=== PATIENT | female | born 1980 | race Caucasian/White ===

== ENCOUNTER → 2019-08-12 08:48 | Outpatient (BNVA) | payer BC, SELFPAY | PROVIDERS: PCP Nurse Practitioner Family; Visit Provider Obstetrics & Gynecology Female Pelvic Medicine and Reconstructive Surgery | DX: N92.6 Irregular menstruation, unspecified (principal); N93.0 Postcoital and contact bleeding | CPT/HCPCS: 84443 ==

== ENCOUNTER → 2019-08-27 11:03 | Outpatient (BNVA) | payer BC, SELFPAY | PROVIDERS: PCP Nurse Practitioner Family; Visit Provider Obstetrics & Gynecology Female Pelvic Medicine and Reconstructive Surgery | DX: N93.9 Abnormal uterine and vaginal bleeding, unspecified (principal) | CPT/HCPCS: 88305 ==

== ENCOUNTER 2020-11-08 10:47 | Emergency (ER) | payer MEDICAID, SELFPAY ==
[2020-11-08 10:52] VITALS: BP 123/94; PULSE 97; RESP 18; TEMP 37.1; O2SAT 97
--- NOTE | 2020-11-08 11:06 | ED_ITS ---
HPI - Nausea/Vomiting/Diarrhea General: Chief complaint: Nausea/Vomiting/Diarrhea Stated complaint: VOMITING, POSS DEHYDRATED, WANTS DRUG SCREENING Time Seen by Provider: 11/08/20 10:56 Source: patient Mode of arrival: ambulatory Limitations: no limitations History of Present Illness: HPI Narrative: Patient comes in with nausea and vomiting that started about 3:00 this morning. Since about 6 patient has noticed mainly bilious type vomiting. Patient reports that last night she did go out for girls night and drink quite a bit of alcohol. Patient started getting sick then this early this morning which is progressed to the point that she is unable to hold anything down and continues to have retching episodes. Patient reports cholecystectomy, and tubal ligation. Patient denies any chronic medical problems. MD elicited complaint: nausea and vomiting Onset (ago): hour(s) Description of vomiting: bilious Associated nausea: Yes Associated abdominal pain: Yes Location of pain: Epigastric Pain consistency: colicky Severity: mild Quality: aching Exacerbating factors: none Relieving factors: none Associated symtoms: Reports nausea Treatment prior to arrival: none Review of Systems General: Reports: 10 or more systems reviewed and unremarkable except in HPI and below GI: Reports: nausea and vomiting Physical Exam Const: COMMON NORMALS: no acute distress and patient oriented x3 GENERAL APPEARANCE: cooperative HENMT: COMMON NORMALS: normocephalic and Normal external nose present HEAD & SCALP: normal to inspection and normocephalic NOSE: Normal external nose present MOUTH: Normal oral and palatal mucosa present Eye: GENERAL EYE: appearance normal, both eyes and all related structures Neck/C-Spine: COMMON NORMALS: full ROM Chest: COMMONS NORMALS: normal inspection of the chest Resp: COMMON NORMALS: normal respiratory effort EFFORT & INSPECTION: Yes able to speak in complete sentences Cardio: COMMON NORMALS: regular rate and regular rhythm RATE: regular rate RHYTHM: regular rhythm GI: PALPATION: Yes Tenderness to palpation present (GI) (epigastric) : COMMON NORMALS: Yes no CVA tenderness BLADDER/KIDNEY EXAM: Yes no CVA tenderness Back/Pelvis: COMMON NORMALS: no CVA tenderness and thoracic and lumbar spine normal to inspection Extremity: COMMON NORMALS: normal to inspection Neuro: COMMON NORMALS: patient oriented x3 and moves all extremities Psych: COMMON NORMALS: mental status grossly normal and cooperative Skin: COMMON NORMALS: no rashes or lesions noted GENERAL SKIN EXAM: no rashes or lesions noted Course ED course: 1215, patient is much improved after first liter of IV fluids. Lab oratory values were unremarkable. Reviewed exam with patient with recommendations for further treatment and follow-up. Patient reported understanding agreed to plan. Vital Signs: Vital signs: Vital Signs Temperature 98.7 F 11/08/20 10:52 Pulse Rate 107 H 11/08/20 11:51 Respiratory Rate 15 11/08/20 11:51 Blood Pressure 107/80 11/08/20 11:51 Pulse Oximetry 100 11/08/20 11:51 MDM - Nausea/Vomiting/Diarrhea MDM Narrative: Medical decision making narrative: Patient came in today for persistent nausea and vomiting after large amount of alcohol ingestion last night. On exam oral mucosa was dry, abdomen is soft with nontender palpation. Vital signs were normal. Differential diagnosis includes gastritis secondary to alcohol, pancreatitis, dehydration. Laboratory values were unremarkable. Patient had significant improvement after 1 L of IV fluids and medication for nausea and vomiting. Patient was given Haldol 2-1/2 mg and Benadryl 25 mg with significant control of retching and nausea and vomiting. Patient was totally infused with 2 L of IV fluids. We will continue with Zofran and clear liquid diet for the next day. Patient reported understanding of care plan and need for follow-up or return to the ER. Lab Data: Labs: Lab Results 11/08/20 11/08/20 11/08/20 Range/Units 11:05 11:05 11:14 WBC 12.6 H (4.0-10.0) 10^3/ uL RBC 4.92 (4.1-5.3) 10^6/u L Hgb 14.8 (11.5-15.3) g/dL Hct 45.2 (37.0-47.0) % MCV 91.9 (81-99) fL MCH 30.1 (28.0-34.0) pg MCHC 32.7 (30.0-36.0) g/dL RDW 12.8 (12.1-15.1) % Plt Count 269 (130-400) 10^3/c mm MPV 8.8 (7.4-10.4) fL Neut % (Auto) 82.2 % Lymph % (Auto) 11.0 % [place] % (Auto) 5.4 % Eos % (Auto) 0.5 % Baso % (Auto) 0.4 % Neut # (Auto) 10.40 H (1.8-7.7) 10^3/u L Lymph # (Auto) 1.4 (0.8-4.8) 10^3/u L [place] # (Auto) 0.7 (0.2-0.9) 10^3/u L Eos # (Auto) 0.1 (0.0-0.8) 10^3/u L Baso # (Auto) 0.1 (0.0-0.1) 10^3/u L Nucleated RBC % (a uto) 0 % Nucleated RBCs # 0.0 /100WBC Sodium 141 (136-145) mmol/L Potassium 4.1 (3.5-5.1) mmol/L Chloride 104 (98-107) mmol/L Carbon Dioxide 25 (22-29) mmol/L Anion Gap 16.1 (5-19) BUN 11 (6-20) mg/dL Creatinine 0.7 (0.5-0.9) mg/dL GFR Calculation 91.8 (90-130) mL/min Glucose 119 H (65-115) mg/dL Calculated Osmolal ity 293 (285-295) mOsm/k g Calcium 8.7 (8.5-10.5) mg/dL Total Bilirubin 0.2 (0.15-1.2) mg/dL AST 29 (0-32) U/L ALT 34 H (0-33) U/L Alkaline Phosphata se 54 (35-105) IU/L Total Protein 6.7 (6.6-8.7) g/dL Albumin 4.1 (3.5-5.2) g/dL Globulin 2.6 (1.3-4.6) g/dL Urine Color Straw (Yellow) Urine Appearance Clear (CLEAR) Urine pH 9 H (5-7) Ur Specific Gravit y 1.015 (1.005-1.030) Urine Protein Neg (Negative) Urine Glucose (UA) Norm (Normal) Urine Ketones Negative (Negative) Urine Blood Neg (Negative) Urine Nitrate Negative (Negative) Urine Bilirubin Neg (Negative) Prot Sulfosalicyli c Acd Negative (Negative) Urine Urobilinogen Norm (Negative) mg/dL Ur Leukocyte Ana ase Negative (Negative) Urine Opiates Scre en (Negative) ng/mL Ur Barbiturates Sc reen (Negative) ng/mL Ur Phencyclidine S crn (Negative) ng/mL Ur Amphetamines Sc reen (Negative) ng/mL U Benzodiazepines Scrn (Negative) ng/mL Urine Cocaine Scre en (Negative) ng/mL U Marijuana (THC) Screen (Negative) ng/mL 11/08/20 Range/Units 11:14 WBC (4.0-10.0) 10^3/ uL RBC (4.1-5.3) 10^6/u L Hgb (11.5-15.3) g/dL Hct (37.0-47.0) % MCV (81-99) fL MCH (28.0-34.0) pg MCHC (30.0-36.0) g/dL RDW (12.1-15.1) % Plt Count (130-400) 10^3/c mm MPV (7.4-10.4) fL Neut % (Auto) % Lymph % (Auto) % [place] % (Auto) % Eos % (Auto) % Baso % (Auto) % Neut # (Auto) (1.8-7.7) 10^3/u L Lymph # (Auto) (0.8-4.8) 10^3/u L [place] # (Auto) (0.2-0.9) 10^3/u L Eos # (Auto) (0.0-0.8) 10^3/u L Baso # (Auto) (0.0-0.1) 10^3/u L Nucleated RBC % (a uto) % Nucleated RBCs # /100WBC Sodium (136-145) mmol/L Potassium (3.5-5.1) mmol/L Chloride (98-107) mmol/L Carbon Dioxide (22-29) mmol/L Anion Gap (5-19) BUN (6-20) mg/dL Creatinine (0.5-0.9) mg/dL GFR Calculation (90-130) mL/min Glucose (65-115) mg/dL Calculated Osmolal ity (285-295) mOsm/k g Calcium (8.5-10.5) mg/dL Total Bilirubin (0.15-1.2) mg/dL AST (0-32) U/L ALT (0-33) U/L Alkaline Phosphata se (35-105) IU/L Total Protein (6.6-8.7) g/dL Albumin (3.5-5.2) g/dL Globulin (1.3-4.6) g/dL Urine Color (Yellow) Urine Appearance (CLEAR) Urine pH (5-7) Ur Specific Gravit y (1.005-1.030) Urine Protein (Negative) Urine Glucose (UA) (Normal) Urine Ketones (Negative) Urine Blood (Negative) Urine Nitrate (Negative) Urine Bilirubin (Negative) Prot Sulfosalicyli c Acd (Negative) Urine Urobilinogen (Negative) mg/dL Ur Leukocyte Ana ase (Negative) Urine Opiates Scre en Negative (Negative) ng/mL Ur Barbiturates Sc reen Negative (Negative) ng/mL Ur Phencyclidine S crn Negative (Negative) ng/mL Ur Amphetamines Sc reen Negative (Negative) ng/mL U Benzodiazepines Scrn Negative (Negative) ng/mL Urine Cocaine Scre en Negative (Negative) ng/mL U Marijuana (THC) Screen Negative (Negative) ng/mL Discharge Plan Discharge Patient Disposition: Home Clinical Impression: Dehydration Nausea & vomiting Qualifiers: Vomiting type: bilious vomiting Qualified Code(s): R11.14 - Bilious vomiting Condition: Stable Prescriptions: New ondansetron 4 mg tablet,disintegrating 4 mg PO Q8H PRN (Reason: nausea and vomiting) 3 Days RF: 7 No Action multivitamin Tablet 1 tab PO DAILY RF: 0 ibuprofen 200 mg Tablet 400 - 600 mg PO PRN RF: 0 Discharge Orders: Discharge ED (Routine); Ordered 11/08/20 Ordered By: Giorgio Arnold Discharge Diet: Usual diet Discharge Activity: Increase activity as tolerated Patient Instructions: Acute Nausea and Vomiting (ED), Opioid Safety Activity Restrictions/Additional Instructions: You were mildly dehydrated on your laboratory values today. This is most likely due to nausea and vomiting because of gastritis that may be secondary to your alcohol ingestion. I would recommend that you continue with a liquid diet for the next 12 hours and then increase diet slowly over the next 2 days to a bland diet as tolerated. Use ondansetron as needed for nausea. Monitor self for fever or blood in vomit or stool. If you have any of the symptoms you should be reevaluated. Follow-up with primary care as needed. Return to the ER for worsening symptoms. Coding Level of Care Code ED Child Nurse for Chg Fwd Exam Comprehensive
[2020-11-08] MEDS: sodium chloride 0.9% 1,000 ML 999 ML IV (11:12)
[2020-11-08 11:16] LABS: Basophils # 0.1 10^3/uL (0.0-0.1); Basophils % 0.4 %; Eosinophils # 0.1 10^3/uL (0.0-0.8); Eosinophils % 0.5 %; Hematocrit 45.2 % (37.0-47.0); Hemoglobin 14.8 g/dL (11.5-15.3); Lymphocytes # 1.4 10^3/uL (0.8-4.8); Mean Corpuscular HGB Conc 32.7 g/dL (30.0-36.0); Mean Corpuscular Hemoglobin 30.1 pg (28.0-34.0); Mean Corpuscular Volume 91.9 fL (81-99); Mean Platelet Volume 8.8 fL (7.4-10.4); Monocytes # 0.7 10^3/uL (0.2-0.9); Monocytes % 5.4 %; Neutrophils % 82.2 %; Nucleated Red Blood Cells % 0 %; Platelet Count 269 10^3/cmm (130-400); Red Blood Count 4.92 10^6/uL (4.1-5.3); Red Cell Distribution Width 12.8 % (12.1-15.1); White Blood Count 12.6 10^3/uL (4.0-10.0)
[2020-11-08 11:20] LABS: Add Urine Microscopic? NO; Charge for UA Resulting for Rev
[2020-11-08] MEDS: diphenhydrAMINE 50 mg/mL SDV 1mL 25 MG IVP (11:23)
[2020-11-08] MEDS: haloperidol inj 5 mg/mL INJ 1 mL 2.5 MG IVP (11:24)
[2020-11-08 11:27] VITALS: BP 123/75; PULSE 90; RESP 15; O2SAT 100
[2020-11-08 11:38] LABS: Amphetamines Screen Urine Negative (Negative); Barbiturates Screen Urine Negative (Negative); Benzodiazepines Screen Urine Negative (Negative); Bilirubin Urine Neg (Negative); Blood Urine Neg (Negative); Cocaine Screen Urine Negative (Negative); Glucose Urine UA Norm (Normal); Ketones Urine Negative (Negative); Leukocyte Esterase Urine Negative (Negative); Nitrate Urine Negative (Negative); Opiate Screen Urine Negative (Negative); PCP Screen Urine Negative (Negative); Protein Urine Neg (Negative); Specific Gravity, Urine 1.015 (1.005-1.030); Sulfosalicylic Acid Urine Negative (Negative); THC Screen Urine Negative (Negative); Urine Appearance Clear (CLEAR); Urine Color Straw (Yellow); Urobilinogen Urine Norm (Negative); pH Urine 9 (5-7)
[2020-11-08 11:51] VITALS: BP 107/80; PULSE 107; RESP 15; O2SAT 100
[2020-11-08 12:12] LABS: Alanine Aminotransferase 34 U/L (0-33); Albumin Level 4.1 g/dL (3.5-5.2); Alkaline Phosphatase 54 IU/L (35-105); Anion Gap 16.1 (5-19); Aspartate Amino Transferase 29 U/L (0-32); Blood Urea Nitrogen 11 mg/dL (6-20); Calcium 8.7 mg/dL (8.5-10.5); Carbon Dioxide 25 mmol/L (22-29); Chloride 104 mmol/L (98-107); Globulin 2.6 g/dL (1.3-4.6); Glomerular Filtration Rate 91.8 mL/min (90-130); Glucose 119 mg/dL (65-115); Osmolality Calculated 293 mOsm/kg (285-295); Potassium 4.1 mmol/L (3.5-5.1); Sodium 141 mmol/L (136-145); Total Bilirubin 0.2 mg/dL (0.15-1.2); Total Protein 6.7 g/dL (6.6-8.7)
[2020-11-08] MEDS: lactated ringers 1,000 ML 999 ML IV (12:20)
[2020-11-08 13:54] VITALS: BP 130/84; PULSE 119; RESP 19; O2SAT 98
== END 2020-11-08 13:55 | disposition home or self-care (01) ==
PROVIDERS: Emergency Provider Nurse Practitioner Family
DX: R11.14 Bilious vomiting (principal); E86.0 Dehydration
CPT/HCPCS: 80053; 80306; 81003; 85025; 96361; 96374; 96375; 99284; J1200; J1630; J7030

== ENCOUNTER 2021-08-12 08:51 | Emergency (ER) | payer MEDICAID, SELFPAY ==
[2021-08-12 09:13] VITALS: BP 99/71; PULSE 106; RESP 19; TEMP 36.8; O2SAT 97; BMI 29.2
--- NOTE | 2021-08-12 09:16 | XR_ITS ---
WS: [id number] PORTABLE CHEST HISTORY: cough, covid symptoms COMPARISON: 09/30/2015 Lungs are clear and well expanded. No pleural effusion or pneumothorax. Cardiac size: Normal. Mediastinum/Aorta: Normal mediastinum. No osseous abnormality seen. XR/XR chest 1V portable [id number] IMPRESSION: Unremarkable portable chest.
--- NOTE | 2021-08-12 09:23 | ED_ITS ---
HPI - COVID General: Chief Complaint: COVID symptoms Stated Complaint: Dehydrated, Vomiting alot, COVID + Time Seen by Provider: 08/12/21 09:17 Triage information: No fever, cough or shortness of breath . No known COVID + exposure last 14 days History of Present Illness: Patient is a 41-year-old female comes to the ED with Covid symptoms. Patient says the some of her family she lives with tested positive for COVID-19 recently. Patient's symptoms started 4 days ago. Her symptoms are cough, nasal congestion and drainage, nausea/vomiting, chills and body aches. She has had trouble keeping foods or fluids down. Denies any chest pain or shortness of breath. COVID 19 common symptoms: positive chills, productive cough, body aches, nasal congestion, nausea and vomiting; negative fever(s), dyspnea, fatigue, headache(s), throat pain or diarrhea COVID 19 other sytmptoms: negative chest pain COVID Results: SARS-CoV-2 RNA (RT-PCR) Pending 08/12/21 09:26 08/12/21 Review of Systems Const: Reports: chills and body aches; Denies: fever(s) or fatigue Eyes: Denies: change in vision or eye discomfort ENMT: Reports: nasal discharge and nasal congestion; Denies: throat pain or odynophagia Card: Denies: chest pain, palpitations, edema, swelling of feet/ankles, dyspnea on exertion or orthopnea Resp: Reports: productive cough and change in phlegm color (yellow); Denies: dyspnea GI: Reports: nausea and vomiting; Denies: abdominal pain, diarrhea, constipation or hematochezia : Denies: flank pain, dysuria or hematuria Musc: Denies: neck pain, back pain or extremity swelling Skin/Breast: Denies: rash or new lesions Neuro: Denies: headache(s), numbness in extremities or weakness in extremities PFSH ED PFSH: Medical History Staci-Danlos syndrome Surgical History History of facial surgery Plastic surgery with skin graft as a child for a traumatic injury History of tubal ligation (~2013) at time of Hx of dilation and curettage Previous section (~2009) Previous section (~2010) Previous section Status post cholecystectomy (~2013) Family History Mother Hypertension Hyperlipidemia Thyroid condition Heart disease Grandmother Hypertension maternal Hyperlipidemia Maternal and paternal Family/Other Stroke Maternal uncle Uterine cancer Maternal great aunt Denies family history of Colon cancer Ovarian cancer Diabetes Breast cancer Social History Smoking and tobacco status: never smoked Alcohol intake: current Alcohol intake frequency: holidays/special occasions only Physical Exam Const: COMMON NORMALS: no acute distress, patient oriented x3, healthy appearing and alert GENERAL APPEARANCE: cooperative and comfortable HENMT: COMMON NORMALS: normocephalic HEAD & SCALP: normocephalic MOUTH: Normal oral and palatal mucosa present THROAT: posterior oropharynx normal and uvula midline Neck/C-Spine: COMMON NORMALS: supple GENERAL: Yes normal visual inspection Resp: COMMON NORMALS: normal respiratory effort, No retractions, No use of accessory muscles and clear to auscultation bilaterally AUSCULTATION: clear to auscultation bilaterally Cardio: COMMON NORMALS: regular rate, regular rhythm, S1 normal heart sound present, S2 normal heart sound present, No gallops present (Cardio), No clicks present (Cardio), No murmurs present (Cardio) and Peripheral pulses 2+ throughout RATE: regular rate RHYTHM: regular rhythm HEART SOUNDS: S1 normal heart sound present and S2 normal heart sound present PERIPHERAL PULSES: Peripheral pulses 2+ throughout GI: COMMON NORMALS: Normal to inspection, nondistended, normoactive bowel sounds present, Soft to palpation, non-tender and no masses PALPATION: Yes Soft to palpation : COMMON NORMALS: Yes no CVA tenderness BLADDER/KIDNEY EXAM: Yes no CVA tenderness Back/Pelvis: COMMON NORMALS: no CVA tenderness Extremity: COMMON NORMALS: normal to inspection Neuro: COMMON NORMALS: patient oriented x3 and moves all extremities SENSORIUM/ORIENTATION: Yes alert Skin: GENERAL SKIN EXAM: dry skin Course Reevaluation(s): Reevaluation #1: Patient received IM Toradol and Zofran. After she received meds she was able to keep fluids down and had no episodes of emesis here in the ED. Time: 11:00 Vital Signs: Vital signs: Vital Signs Temperature 98.0 F 08/12/21 11:22 Pulse Rate 88 08/12/21 11:22 Respiratory Rate 18 08/12/21 11:22 Blood Pressure 90/65 08/12/21 11:22 Pulse Oximetry 97 08/12/21 11:22 [facility] - COVID Medical Decision Making Patient is a 41-year-old female comes to the ED with Covid symptoms. She has several people who live in her house with her that tested positive for COVID-19. She is having a lot of nausea and vomiting along with upper respiratory symp toms such as productive cough with yellow sputum. She had a positive home Covid test. Vitals are stable. Exam is benign. Influenza negative and COVID-19 is pending. Chest x-ray showed no acute findings. Patient was given some IM Zofran and Toradol her symptoms improved. She was able to keep fluids down. Patient diagnosed with COVID-19. Patient discharged home with a prescription for prednisone, Zofran, Tessalon Perles and a Z-Pop. She is to follow-up with her PCP in 5 to 7 days reevaluation. Return ED precautions given. Patient understood and agree with plan. Lab Data I reviewed the patient's lab results. Radiology Impressions Chest X-Ray 08/12/21 09:16 IMPRESSION: Unremarkable portable chest. Laboratory Results Influenza Type A Ag Negative (Negative) 08/12/21 09:26 Influenza Type B Ag Negative (Negative) 08/12/21 09:26 SARS-CoV-2 RNA (RT-PCR) Pending 08/12/21 09:26 08/12/21 Discharge Plan Discharge Patient Disposition: Home Clinical Impression: COVID-19 Condition: Stable Prescriptions: New Zofran 4 mg tablet 4 mg PO Q8H PRN (Reason: nausea and vomiting) Qty: 20 0RF Tessalon Perles 100 mg capsule 100 mg PO TID PRN (Reason: cough) Qty: 20 0RF prednisone 20 mg tablet 20 mg PO BID 5 Days Qty: 10 0RF azithromycin 250 mg tablet See Rx Instructions .ROUTE .COMPLEX Qty: 6 0RF Rx Instructions: take 500 mg today (day 1), then 250 mg for 4 days (days 2-5) No Action norgestimate-ethinyl estradiol [Tri-Sprintec (28)] 0.18/0.215/0.25 mg-35 mcg (28) tablet 1 tab PO DAILY 0RF multivitamin with iron Tablet 1 tab PO DAILY 0RF azithromycin [Zithromax] 1 gram packet 1 gm PO DAILY 0RF Rx Instructions: for 5 days loratadine [Claritin] 10 mg tablet 10 mg PO DAILY 0RF Discharge Orders: Discharge ED (Routine); Ordered 08/12/21 Ordered By: Sukhjinder Ledesma Referrals: Demetrio Ross FNP [Primary Care Provider] - Discharge Diet: Regular Discharge Activity: Increase activity as tolerated Patient Instructions: COVID-19 (Coronavirus Disease 2019) (ED) Activity Restrictions/Additional Instructions: Follow-up with medical provider as directed in 5 to 7 days for reevaluation. Your COVID-19 test is pending and should be back in the next 24 to 48 hours. You can contact [facility] tomorrow to find out COVID-19 test results. Take medications as prescribed. Return to the ER or your medical provider if condition worsens. Please read and understand discharge instructions. Thank you for choosing [facility] for your healthcare needs today. Please realize this is an emergency room and that we are providing you with a medical screening exam and this may not be complete and all inclusive of all the testing and or work up that you may need to determine your ailment or severity of your illness. It is very important that you follow up as instructed or that you return to the Emergency Department should you have concerns or if your condition changes or worsens in any way. Coding Level of Care Code ED Rate Examiner for Malcolm Campos Exam Comprehensive
[2021-08-12 10:28] VITALS: O2SAT 97
[2021-08-12] MEDS: ondansetron 2 mg/ML SDV 2 mL 4 MG IM (10:28)
[2021-08-12] MEDS: ketorolac 60 mg/2 mL INJ IM (10:28)
[2021-08-12 11:08] LABS: Influenza A by IFA Negative (Negative); Influenza B by IFA Negative (Negative)
[2021-08-12 11:22] VITALS: BP 90/65; PULSE 88; RESP 18; TEMP 36.7; O2SAT 97
[2021-08-13 18:08] LABS: Quest SARS-CoV-2 RNA DETECTED (NOT DETECTED)
--- NOTE | 2021-08-14 15:44 | PC.NURSE ---
pt notfied of postive covid results
== END 2021-08-12 11:25 | disposition home or self-care (01) ==
PROVIDERS: Emergency Provider Physician Assistant; PCP Nurse Practitioner Family
DX: U07.1 COVID-19 (principal)
CPT/HCPCS: 71045; 87635; 87804; 96372; 99283; J1885; J2405

== ENCOUNTER 2022-03-27 11:13 | Emergency (ER) | payer BC, MEDICAID, SELFPAY ==
[2022-03-27 11:14] VITALS: BP 140/85; PULSE 86; RESP 16; TEMP 36.3; O2SAT 97; BMI 31.1
--- NOTE | 2022-03-27 11:17 | W.ED.ABDPA2 ---
HPI - Abdominal Pain General: Chief Complaint: Nausea/Vomiting/Diarrhea Stated Complaint: N/V Abd pain Time Seen by Provider: 03/27/22 11:16 History of Present Illness: Ms. Singleton is a 42-year-old lady who presents to the emergency department due to nausea, vomiting, abdominal pain. She reports positive COVID diagnosis approximately 9 days ago but had been improving. Yesterday she ate a chicken sandwich in the afternoon and did not have dinner. She went and had some drinks including multiple shots and a beer. Around midnight she woke up and had abdominal pain with numerous episodes of nonbilious and nonbloody emesis associated with the pain. She feels generally unwell with chills related to vomiting. Pain is mostly epigastric in nature and burning with burning sensation radiating up to the throat. Intensity of symptoms is moderate to severe. Attempted Zofran at home however vomited it up. No other specific changes in health, exacerbating, or alleviating factors identified. Onset (ago): hour(s) Pain Consistency: constant Location: Epigastric Associated Symptoms: Reports diarrhea, nausea and vomiting; Denies hematemesis Review of Systems General: Reports: 10 or more systems reviewed and unremarkable except in HPI and below GI: Reports: nausea, vomiting and diarrhea; Denies: hematemesis PFSH ED PFSH: Medical History Bursitis and tendinitis of shoulder region Staci-Danlos syndrome Surgical History History of facial surgery Plastic surgery with skin graft as a child for a traumatic injury History of tubal ligation (~2013) at time of Hx of dilation and curettage Previous section (~2009) Previous section (~2010) Previous section Status post cholecystectomy (~2013) Family History Mother Hypertension Hyperlipidemia Thyroid condition Heart disease Grandmother Hypertension maternal Hyperlipidemia Maternal and paternal Family/Other Stroke Maternal uncle Uterine cancer Maternal great aunt Denies family history of Colon cancer Ovarian cancer Diabetes Breast cancer Social History Smoking and tobacco status: never smoked Alcohol intake: current Alcohol intake frequency: holidays/special occasions only Physical Exam Const: COMMON NORMALS: alert GENERAL APPEARANCE: cooperative and well developed HENMT: COMMON NORMALS: normocephalic and atraumatic HEAD & SCALP: normocephalic and atraumatic Eye: COMMON NORMALS: conjunctivae normal CONJUNCTIVA: Yes conjunctivae normal SCLERA: sclerae normal Neck/C-Spine: COMMON NORMALS: supple GENERAL: Yes trachea midline Resp: COMMON NORMALS: clear to auscultation bilaterally EFFORT & INSPECTION: Yes able to speak in complete sentences AUSCULTATION: clear to auscultation bilaterally Cardio: COMMON NORMALS: regular rate and regular rhythm RATE: regular rate RHYTHM: regular rhythm GI: COMMON NORMALS: Soft to palpation PALPATION: Yes Soft to palpation, Yes Tenderness to palpation present (GI) (Epigastric), No Guarding due to palpation present (GI) and No Rigid due to palpation PERCUSSION: normal to percussion Extremity: GENERAL: Yes normal exam except as noted and No edema Neuro: COMMON NORMALS: moves all extremities SENSORIUM/ORIENTATION: Yes alert and No Orientation impaired Psych: COMMON NORMALS: mental status grossly normal and Normal thought process present THOUGHT PROCESS: Normal thought process present Course Vital Signs: Vital signs: Vital Signs Temperature 97.4 F L 03/27/22 11:21 Pulse Rate 78 03/27/22 13:22 Respiratory Rate 16 03/27/22 13:22 Blood Pressure 140/85 03/27/22 11:21 Pulse Oximetry 98 03/27/22 13:22 Oxygen Delivery Me thod 03/27/22 11:21 MDM - Abdominal Pain Medical Decision Making 42-year-old lady with recent history of COVID presenting with abdominal symptoms. Exam as above. No evidence of peritonitis or acute surgical abdomen. Mild leukocytosis on blood work without other significant abnormality. Discussed risks and benefits of imaging which the patient wishes to forego at this time given low clinical probability for significant finding. She is improved with symptom treatment/medications. Satisfactory for outpatient management with strict return precautions given. Medical Records I reviewed the patient's medical records. Lab Data I reviewed the patient's lab results. : 03/27/22 11:45 03/27/22 11:45 Labs/Radiology: Laboratory Results WBC 11.9 10^3/uL (4.0-10.0) H 03/27/22 11:45 RBC 4.59 10^6/uL (4.1-5.3) 03/27/22 11:45 Hgb 14.0 g/dL (11.5-15.3) 03/27/22 11:45 Hct 41.8 % (37.0-47.0) 03/27/22 11:45 MCV 91.1 fl (81-99) 03/27/22 11:45 MCH 30.5 pg (28.0-34.0) 03/27/22 11:45 MCHC 33.5 g/dL (30.0-36.0) 03/27/22 11:45 RDW 12.4 % (12.1-15.1) 03/27/22 11:45 Plt Count 262 10^3/cmm (130-400) 03/27/22 11:45 MPV 9.0 fL (7.4-10.4) 03/27/22 11:45 Neut % (Auto) 89.1 % 03/27/22 11:45 Lymph % (Auto) 7.0 % 03/27/22 11:45 [place] % (Auto) 2.9 % 03/27/22 11:45 Eos % (Auto) 0.1 % 03/27/22 11:45 Baso % (Auto) 0.3 % 03/27/22 11:45 Neut # (Auto) 10.63 10^3/uL (1.8-7.7) H 03/27/22 11:45 Lymph # (Auto) 0.8 10^3/uL (0.8-4.8) 03/27/22 11:45 [place] # (Auto) 0.3 10^3/uL (0.2-0.9) 03/27/22 11:45 Eos # (Auto) 0.0 10^3/uL (0.0-0.8) 03/27/22 11:45 Baso # (Auto) 0.0 10^3/uL (0.0-0.1) 03/27/22 11:45 Nucleated RBC % (auto) 0 % 03/27/22 11:45 Nucleated RBCs # 0.0 /100WBC 03/27/22 11:45 Sodium 140 mmol/L (136-145) 03/27/22 11:45 Potassium 4.1 mmol/L (3.5-5.1) 03/27/22 11:45 Chloride 106 mmol/L (98-107) 03/27/22 11:45 Carbon Dioxide 24 mmol/L (22-29) 03/27/22 11:45 Anion Gap 14.1 (5-19) 03/27/22 11:45 BUN 9 mg/dL (6-20) 03/27/22 11:45 Creatinine 0.6 mg/dL (0.5-0.9) 03/27/22 11:45 GFR Calculation 108.6 mL/min (90-130) 03/27/22 11:45 Glucose 121 mg/dL (65-115) H 03/27/22 11:45 Calculated Osmolality 290 mOsm/kg (285-295) 03/27/22 11:45 Calcium 9.0 mg/dL (8.5-10.5) 03/27/22 11:45 Lipase 30 U/L (13-60) 03/27/22 11:45 Discharge Plan Discharge Patient Disposition: Home Clinical Impression: Nausea & vomiting, Epigastric abdominal pain Condition: Stable Prescriptions: New ondansetron 4 mg tablet,disintegrating 4 mg PO Q8H PRN (Reason: nausea and vomiting) Qty: 15 0RF Discharge Orders: Discharge ED (Routine); Ordered 03/27/22 Ordered By: Chico Leyva Referrals: Demetrio Ross FNP [Primary Care Provider] - Discharge Diet: Usual diet and Clear Liquid Discharge Activity: Increase activity as tolerated Activity Restrictions/Additional Instructions: Thank you for visiting the emergency department. You were seen and evaluated for nausea and vomiting with epigastric pain. The exact cause of your symptoms is unclear though does not appear to need further imaging or inpatient evaluation at this time. We are pleased that you had improvement with treatment. I will prescribe antinausea medication. Please stick to a clear liquid diet as discussed and then advance as tolerated. I would expect improvement in symptoms in the next few days. Please follow-up with a primary care provider. Return to the emergency department for worsening symptoms, inability to tolerate oral intake, or anything else that you are concerned about and feel needs emergency department evaluation. Coding Level of Care Code ED Heel Washer Stringing Machine Operator for Malcolm Fwd Exam Comprehensive
[2022-03-27 11:21] VITALS: BP 140/85; PULSE 86; RESP 16; TEMP 36.3; O2SAT 97
[2022-03-27] MEDS: ondansetron 2 mg/ML SDV 2 mL 4 MG IVP (11:48)
[2022-03-27] MEDS: ketorolac 30 mg/mL INJ 15 MG IVP (11:48)
[2022-03-27] MEDS: sodium chloride 0.9% 1,000 ML 999 ML IV (11:48)
[2022-03-27 11:58] LABS: Basophils % 0.3 %; Eosinophils % 0.1 %; Hematocrit 41.8 % (37.0-47.0); Lymphocytes # 0.8 10^3/uL (0.8-4.8); Mean Corpuscular HGB Conc 33.5 g/dL (30.0-36.0); Mean Corpuscular Hemoglobin 30.5 pg (28.0-34.0); Mean Corpuscular Volume 91.1 fl (81-99); Monocytes # 0.3 10^3/uL (0.2-0.9); Monocytes % 2.9 %; Neutrophils # 10.63 10^3/uL (1.8-7.7); Neutrophils % 89.1 %; Nucleated Red Blood Cells % 0 %; Platelet Count 262 10^3/cmm (130-400); Red Blood Count 4.59 10^6/uL (4.1-5.3); Red Cell Distribution Width 12.4 % (12.1-15.1); White Blood Count 11.9 10^3/uL (4.0-10.0)
[2022-03-27 12:18] LABS: Blood Urea Nitrogen 9 mg/dL (6-20); Carbon Dioxide 24 mmol/L (22-29); Chloride 106 mmol/L (98-107); Creatinine Clr Calc Pharmacy 115.0416; Glomerular Filtration Rate 108.6 mL/min (90-130); Glucose 121 mg/dL (65-115); Lipase 30 U/L (13-60); Osmolality Calculated 290 mOsm/kg (285-295); Sodium 140 mmol/L (136-145)
[2022-03-27 12:22] LABS: Anion Gap 14.1 (5-19); Potassium 4.1 mmol/L (3.5-5.1)
[2022-03-27 13:22] VITALS: PULSE 78; RESP 16; O2SAT 98
== END 2022-03-27 13:25 | disposition home or self-care (01) ==
PROVIDERS: Emergency Provider Emergency Medicine; PCP Nurse Practitioner Family
DX: R11.2 Nausea with vomiting, unspecified (principal); R10.13 Epigastric pain
CPT/HCPCS: 80048; 83690; 85025; 96361; 96374; 96375; 99284; J1885; J2405; J7030

== ENCOUNTER 2022-11-25 00:12 | Emergency (ER) | payer BC, MEDICAID, SELFPAY ==
--- NOTE | 2022-11-25 00:13 | XRR_ITS ---
PROCEDURE INFORMATION: Exam: XR Right Shoulder Exam date and time: 11/25/2022 12:23 AM Age: 42 years old Clinical indication: Injury or trauma; Fall; Blunt trauma (contusions or hematomas); Patient HX: Patient tripped at home and fell onto floor directly on right shoulder. C/O pain with reduced rom. TECHNIQUE: Imaging protocol: Radiologic exam of the right shoulder. Views: 2 or more views. COMPARISON: CR XR chest 1V portable [id number] 08/12/2021 9:24 AM FINDINGS: Bones/joints: No acute fracture or dislocation. Subtle calcific densities at the superior margin of the humeral head and likely represents calcific tendinopathy, correlate clinically. Soft tissues: Grossly unremarkable in appearance. XR/XR shoulder RT min 2V* [id number] IMPRESSION: 1. No acute fracture or dislocation. 2. Subtle calcific densities at the superior margin of the humeral head and likely represents calcific tendinopathy, correlate clinically.
[2022-11-25 00:17] VITALS: BP 127/88; PULSE 75; RESP 20; TEMP 36.6; O2SAT 98; BMI 32.9
--- NOTE | 2022-11-25 00:23 | ED_ITS ---
HPI - Extremity Problem General: Chief complaint: Extremity Injury, Upper Stated complaint: right shoulder injury Time Seen by Provider: 11/25/22 00:13 Source: patient Mode of arrival: ambulatory Limitations: no limitations History of Present Illness: 42-year-old female states that she tripped over her cat roughly 5 hours ago landed on a hardwood floor states she landed right on her right shoulder has been having right shoulder pain since then hurts to move it she rates her pain a 7 out of 10 currently denies headache or neck pain. Associated symptoms: Deny chest pain, fever(s) or rash Review of Systems Const: Denies: fever(s) ENMT: Denies: throat pain Card: Denies: chest pain Resp: Denies: dyspnea GI: Denies: abdominal pain Musc: Reports: extremity pain; Denies: neck pain or back pain Skin/Breast: Denies: rash Neuro: Denies: headache(s) PFS ED PFSH: Medical History Bursitis and tendinitis of shoulder region Staci-Danlos syndrome Surgical History History of facial surgery Plastic surgery with skin graft as a child for a traumatic injury History of tubal ligation (~2013) at time of Hx of dilation and curettage Previous section (~2009) Previous section (~2010) Previous section Status post cholecystectomy (~2013) Family History Mother Hypertension Hyperlipidemia Thyroid condition Heart disease Grandmother Hypertension maternal Hyperlipidemia Maternal and paternal Family/Other Stroke Maternal uncle Uterine cancer Maternal great aunt Denies family history of Colon cancer Ovarian cancer Diabetes Breast cancer Social History Smoking and tobacco status: never smoked Alcohol intake: current Alcohol intake frequency: holidays/special occasions only Substance/Drug Use: never Physical Exam Const: COMMON NORMALS: no acute distress and patient oriented x3 HENMT: COMMON NORMALS: normocephalic and atraumatic HEAD & SCALP: normocephalic and atraumatic Eye: COMMON NORMALS: conjunctivae normal CONJUNCTIVA: Yes conjunctivae normal Neck/C-Spine: COMMON NORMALS: full ROM CERVICAL SPINE: No cervical ROM normal, No pain with cervical ROM and No Cervical spine tenderness Resp: COMMON NORMALS: normal respiratory effort Cardio: COMMON NORMALS: regular rate RATE: regular rate GI: INSPECTION: Yes normal to inspection Extremity: NARRATIVE EXTREMITY EXAM: No obvious deformity right shoulder tenderness over right proximal humerus no clavicle tenderness distal pulses sensation intact Neuro: COMMON NORMALS: patient oriented x3 Psych: COMMON NORMALS: mental status grossly normal Skin: COMMON NORMALS: no rashes or lesions noted GENERAL SKIN EXAM: no rashes or lesions noted Course Vital Signs: Vital signs: Vital Signs Temperature 97.9 F 11/25/22 00:17 Pulse Rate 75 11/25/22 00:17 Respiratory Rate 20 H 11/25/22 00:17 Blood Pressure 127/88 11/25/22 00:17 Pulse Oximetry 98 11/25/22 00:17 MDM - Extremity (Nontraumatic) Medical Decision Making Patient presents with right shoulder injury from a fall she does have some pain with range of motion x-ray shows no acute fracture we will place her in a sling she is on to wear his sling at times at all time do some range of motion.. We will place her on Naprosyn and Robaxin she is to follow-up with orthopedics. Medical Records I reviewed the patient's medical records. Imaging Data xr r shoulder: I personally reviewed and interpreted this imaging study as follows: My impression: no acute abnormality Discharge Plan Discharge Patient Disposition: Home Clinical Impression: Sprain of right shoulder Condition: Stable Prescriptions: New methocarbamol 750 mg tablet 750 mg PO Q6H PRN (Reason: spasms) Qty: 20 0RF Naprosyn 500 mg tablet 500 mg PO BID PRN (Reason: pain) Qty: 20 0RF No Action ondansetron 4 mg tablet,disintegrating 4 mg PO Q8H PRN (Reason: nausea and vomiting) Qty: 15 0RF Discharge Orders: Discharge ED (Routine); Ordered 11/25/22 Ordered By: Corine Craig Referrals: Eugenia Coronado MD [Physician] - 1-3 days Demetrio Ross FNP [Primary Care Provider] - Discharge Diet: Advance as tolerated Discharge Activity: Resume usual activity Patient Instructions: Shoulder Sprain (ED) Coding Level of Care Code ED Traffic Control Specialist for g Beth
[2022-11-25] MEDS: HYDROcodone-acetaminophen 5-325 mg Tablet 1 TAB PO (00:32)
--- NOTE | 2022-11-25 10:11 | PC.NURSE ---
Addendum entered by Mine Kellogg 12/02/22 09:27: Patient had a follow up appointment scheduled with ortho - patient did attend appointment. Addendum entered by Mine Kellogg 12/01/22 12:48: Patient has a follow up appointment scheduled for , December 01, 2022 at 2:15 with Elliott Lopez at ortho. Original Note: Patient was seen in the ED and referred to ortho for shoulder injury. TCM sent message to call pt with an appt.
== END 2022-11-25 00:49 | disposition home or self-care (01) ==
PROVIDERS: Emergency Provider Emergency Medicine; PCP Nurse Practitioner Family
DX: S43.401A Unspecified sprain of right shoulder joint, initial encounter (principal); W01.0XXA Fall on same level from slipping, tripping and stumbling without subsequent striking against object, initial encounter
CPT/HCPCS: 73030; 99283

== ENCOUNTER 2023-05-05 15:28 | Outpatient (CLI) | payer BC, MEDICAID, SELFPAY ==
--- NOTE | 2023-05-05 15:33 | MM_ITS ---
WS: [id number] BILATERAL 3D TOMOSYNTHESIS DIGITAL SCREENING MAMMOGRAPHY WITH CAD CLINICAL INFORMATION: SCREENING HISTORY: Screening mammogram. No current complaints. COMPARISON: 2018 TECHNIQUE: Bilateral CC and MLO views. FINDINGS: The breasts are composed of heterogeneous fibroglandular density tissue, which can limit the detectio n of small underlying mass lesions. No suspicious mass, asymmetry, calcifications, or architectural d istortion. No evidence of malignancy. IMPRESSION: MM/[place] [id number] BI-RADS: 1-Negative FOLLOW UP: 1 Year Follow-up Recommend return to annual screening mammography.
== END 2023-05-05 15:29 | disposition home or self-care (01) ==
LOC: RAD 15:28
PROVIDERS: PCP Nurse Practitioner Family; Visit Provider Family Medicine
DX: Z12.31 Encounter for screening mammogram for malignant neoplasm of breast (principal)
CPT/HCPCS: 77063; 77067

== ENCOUNTER 2023-10-16 12:05 | Outpatient (CLI) | payer BC, SELFPAY ==
--- NOTE | 2023-10-16 12:14 | MR_ITS ---
WS: [id number] MRI RIGHT KNEE HISTORY: GLADYS TEST POSITIVE COMPARISON: Radiograph 09/26/2023 Anterior cruciate ligament: Increased T2 signal in the distal ACL. At the ACL attachment to the tibia there is increased T2 signal and also marrow edema in the tibial spines. Suspect there is a partial tear of the distal ACL. No full-thickness tear. Posterior cruciate ligament: Slight buckling. Intact. Medial collateral ligament: Intact. Posterior lateral corner structures: Very mild increased T2 signal in the proximal lateral corner str uctures consistent with a mild sprain. There is also adjacent edema. Medial menisci: Intact. Normal signal, size and shape. Lateral meniscus: Surface fraying posterior horn lateral meniscus. No full-thickness tear. Extensor mechanism: Distal quadriceps tendon and patellar tendons are intact. Fluid and soft tissue: Small suprapatellar joint effusion. No Bennett's cyst. Osseous and articular structures: Patellofemoral compartment: Mild chondromalacia near the patellar eminence. Medial compartment: Mild narrowing of the medial compartment. Full-thickness cartilage defect measuri ng 6 mm in diameter along the weightbearing surface of the femoral condyle. Additional thinning and f issuring of the tibial plateau cartilage. Lateral compartment: Mild narrowing of the lateral compartment. Mild chondromalacia. Moderate marrow edema at the base of the tibial spines. IMPRESSION: 1. Increased T2 signal in the distal ACL. Suspect partial tear. There is no full-thickness tear. 2. There is also increased T2 signal consistent with edema involving the tibial spines and at the ba se of the tibial spines. 3. Mild posterior lateral corner sprain. 4. No meniscal tear. 5. Full-thickness cartilage defect measuring 6 mm in diameter weightbearing surface medial femoral c ondyle. 6. Mild narrowing of the medial and lateral compartments with mild chondromalacia in the lateral com partment.
== END 2023-10-16 12:06 | disposition home or self-care (01) ==
LOC: RAD 12:06
PROVIDERS: PCP Family Medicine; Visit Provider Nurse Practitioner Family
DX: S83.421A Sprain of lateral collateral ligament of right knee, initial encounter (principal); Y99.9 Unspecified external cause status
CPT/HCPCS: 73721

== ENCOUNTER 2023-11-15 06:59 | Outpatient (RCR) | payer BC, SELFPAY | END 2023-12-01 23:59 | disposition home or self-care (01) | LOC: SPT 06:59 | PROVIDERS: PCP Family Medicine; Visit Provider Physician Assistant | DX: M25.561 Pain in right knee (principal) | CPT/HCPCS: 97110; 97161 ==

== ENCOUNTER → 2023-11-21 10:00 | Outpatient (BNVA) | payer BC, SELFPAY | PROVIDERS: PCP Family Medicine; Referring Provider Family Medicine; Visit Provider Obstetrics & Gynecology | DX: Z01.419 Encounter for gynecological examination (general) (routine) without abnormal findings (principal) | CPT/HCPCS: 80053; 84443; 85025; 87624 ==

== ENCOUNTER 2023-12-02 06:00 | Outpatient (RCR) | payer BC, SELFPAY | END 2023-12-13 23:59 | disposition home or self-care (01) | LOC: SPT 06:00 | PROVIDERS: PCP Family Medicine; Visit Provider Physician Assistant | DX: M25.561 Pain in right knee (principal) | CPT/HCPCS: 97110 ==

== ENCOUNTER → 2023-12-14 13:45 | Outpatient (BNVA) | payer BC, SELFPAY | PROVIDERS: PCP Family Medicine; Visit Provider Obstetrics & Gynecology | DX: N92.6 Irregular menstruation, unspecified (principal) | CPT/HCPCS: 76830 ==

== ENCOUNTER 2024-07-17 07:55 | Outpatient (CLI) | payer BC, MEDICAID, SELFPAY ==
--- NOTE | 2024-07-17 08:04 | MM_ITS ---
WS: [id number] SCREENING DIGITAL TOMOSYNTHESIS MAMMOGRAM WITH CAD HISTORY: SCREENING COMPARISON: 03/21/2018, 05/05/2023 Bilateral CC and MLO with tomosynthesis views submitted. Synthetic mammography reviewed. Computer aid ed detection analyzed. Breast composition: The breasts are heterogeneously dense, which may obscure small masses. No suspici ous masses, microcalcifications or architectural distortion. Benign calcifications LEFT breast. MM/MM scr BI tomosynthesis [id number] IMPRESSION: BI-RADS: 2 - Benign FOLLOW UP: 1 Year Follow-up
== END 2024-07-17 07:56 | disposition home or self-care (01) ==
LOC: RAD 07:58
PROVIDERS: PCP Family Medicine; Visit Provider Family Medicine
DX: Z12.31 Encounter for screening mammogram for malignant neoplasm of breast (principal); R92.333 Mammographic heterogeneous density, bilateral breasts; R92.1 Mammographic calcification found on diagnostic imaging of breast
CPT/HCPCS: 77063; 77067

== ENCOUNTER 2025-04-29 20:54 | Emergency (ER) | payer BC, MEDICAID, SELFPAY ==
--- OUTSIDE RECORDS SUMMARY | 2025-04-29 21:07 | XMS_ITS | Data Portability ---
Author Organization TAMMY [facility], AnishAnishSRINATH [facility] Address [address] [place] [id number] Care Team Providers Care Us Marketing Director Name Role Phone BRITT RICE Primary Care Provider Unavailabl e Assessment Encounter Date Assessment Date Assessment LastModified by Organization Details LastModified Time 12/31/2024 12/31/2024 future labs ordered for wellness eval cbc, cmp, lipid [email or web address] Not available 12/31/2024 08:22:52 Plan of Treatment Reminders Order Date Submit Date Provider Last Modified By Organization Details Last Modified Time Details Appointments RECHECK 15 2025 08:00A M Britt Rice MD Not available Not available Not available Lab HbA1c (hemoglob in A1c), blood 2023 [facility] ([facility]), [address] [place], [address], 05/02/2024 08:39:50 CMP, serum or plasma 2023 024 [facility], [address], [address], 05/02/2024 09:21:37 lipid panel, blood 2023 024 [facility], [address], [address], 05/02/2024 09:21:39 CBC 2023 024 [facility], [address], [place], [address], 05/02/2024 08:36:[address] referral [email or web address] [place] [address] Editing Clerk [facility], [address], [place], [address], 04/28/2025 16:36:18 Procedures None recorded. Surgeries None recorded. Imaging MAMMO, screening , digital, bilateral [facility] [address] [facility] [address], [place], [address], 07/15/2024 09:32:34 Medication Orders methylphe nidate ER 36 mg tablet,ex tended release 24 hr 2024 025 [id number], [address], [place], [place], [id number], 04/28/2025 12:49:37 Patient TargetsNo targets recorded. Patient InstructionsNo instructions recorded. Reason for Referral Assistant Director Of Nursing Referral for Tin nitus of left ear Referring Physician: Britt Rice, Family Medicine, Encounter Date: 04/28/2025 Results Created Date Observation Date Name Description Value Unit Range Abnormal Flag Note LastModifiedBy Organization Detail LastModifiedTime 05/02/2005/02/2024 CBC WBC 7.1 x10 4.0-10 .5 Not Available [facility] [address], [place], [address], 05/02/2024 08:36:43 05/02/2005/02/2024 CBC RBC 4.58 x10 3.50-5 .50 Not Available [facility] [address], [place], [address], 05/02/2024 08:36:43 05/02/2005/02/2024 CBC HGB 14.3 g/dL 12.0-1 6.0 Not Available [facility] [address] [facility] 1, [place], [address], 05/02/2024 08:36:43 05/02/2005/02/2024 CBC HCT 41.6 % 37.0-4 7.0 Not Available [facility] [address] [facility] [address] [facility] 1, [place], [address], 05/02/2024 08:36:43 05/02/2005/02/2024 CBC MCV 90.9 fL 80.0-9 9.9 Not Available [facility] [address] [facility] 1, [place], [address], 05/02/2024 08:36:43 05/02/2005/02/2024 CBC MCH 31.1 pg 27.0-3 2.0 Not Available [facility] [address] [facility] [address] [facility] 1, [place], [address], 05/02/2024 08:36:43 05/02/2005/02/2024 CBC MCHC 34.3 g/dL 32.0-3 6.0 Not Available [facility] [address] [facility] [address] [facility] 1, [place], [address], 05/02/2024 08:36:43 05/02/2005/02/2024 CBC RDW 13.4 % 11.5-1 4.5 Not Available [facility] [address] [facility] [address] [facility] 1, [place], [address], 05/02/2024 08:36:43 05/02/2005/02/2024 CBC plt 217.0 x10 140.0- 451.0 Not Available [facility] [address] [facility] [address] [facility] 1, [place], [address], 05/02/2024 08:36:43 05/02/2005/02/2024 CBC lymphocytes % 30.6 % 20.0-5 0.0 Not Available [facility] [address] [facility] 1, [place], [address], 05/02/2024 08:36:43 05/02/2005/02/2024 CBC granulcytes % 59.2 % 30.0-7 0.0 Not Available [facility] [address] [facility] 1, [place], [address], 05/02/2024 08:36:43 05/02/2005/02/2024 CBC monocytes % 6.6 % 2.0-16 .0 Not Available [facility] [address] [facility], [place], [address], 05/02/2024 08:36:43 05/02/2005/02/2024 CBC granulcytes# 4.2 x10 Not [facility] [address] [facility], [place], [address], 05/02/2024 08:36:43 05/02/2005/02/2024 CBC lymphocytes # 2.2 x10 Not Available [facility] [address] [facility] 1, [place], [address], 05/02/2024 08:36:43 05/02/2005/02/2024 CBC monocytes # 0.5 x10 Not Avai lable [facility] [address] [facility] 1, [place], [address], 05/02/2024 08:36:43 05/02/2005/02/2024 CMP (FEMA LE) glucose 97.0 mg/dL 60.0-9 9.0 Not Available [facility] [address] [facility] 1, [place], [address], 05/02/2024 09:21:37 05/02/2005/02/2024 CMP (FEMA LE) BUN (blood urea nitrogen) 19.0 mg/dL 10.0-2 6.0 Not Available [facility] [address] [facility], [place], [address], 05/02/2024 09:21:37 05/02/2005/02/2024 CMP (FEMA LE) creatinine (serum) 0.9 mg/dL 0.4-1. 5 Not Available [facility] [address] [facility], [place], [address], 05/02/2024 09:21:37 05/02/2005/02/2024 CMP (FEMA LE) BUN/creatini ne ratio 21.59 ratio Not Available [facility] [address] [facility], [place], [address], 05/02/2024 09:21:37 05/02/2005/02/2024 CMP (FEMA LE) eGFR calculated 73.[address] [facility] [address] [facility], [place], [address], 05/02/2024 09:21:37 05/02/2005/02/2024 CMP (FEMA LE) total protein 6.9 g/dL 6.0-8. 5 Not Available [facility] [address] [facility], [place], [address], 05/02/2024 09:21:37 05/02/2005/02/2024 CMP (FEMA LE) total bilirubin 0.4 mg/dL 0.2-1. 3 Not Available [facility] [address] [facility], [place], [address], 05/02/2024 09:21:37 05/02/2005/02/2024 CMP (FEMA LE) albumin 4.0 g/dL 3.5-5. 5 Not Available [facility] [address] [facility], [place], [address], 05/02/2024 09:21:37 05/02/20 24 05/02/2024 CMP (FEMA LE) globulin 2.9 calc Not Available [facility] [address] [facility], [place], [address], 05/02/2024 09:21:37 05/02/2005/02/2024 CMP (FEMA LE) AST (SGOT) 22.0 U/L 0.0-46 .0 Not Available [facility] [address] [facility], [place], [address], 05/02/2024 09:21:37 05/02/20 24 05/02/2024 CMP (FEMA LE) altv (SGPT) 16.0 U/L 13.0-6 9.0 normal Not Available [facility] [address] [facility], [place], [address], 05/02/2024 09:21:37 05/02/20 24 05/02/2024 CMP (FEMA LE) A/G ratio 1.4 ratio Not Available [facility] [address] [facility] 1, [place], [address], 05/02/2024 09:21:37 05/02/20 24 05/02/2024 CMP (FEMA LE) ALP phos 52.0 U/L 30.0-1 40.0 normal Not Available [facility] [address] [facility] 1, [place], [address], 05/02/2024 09:21:37 05/02/20 24 05/02/2024 CMP (FEMA LE) calcium 9.7 mg/dL 8.4-10 .5 Not Available [facility] [address] [facility] [address], [place], [address], 05/02/2024 09:21:37 05/02/2005/02/2024 CMP (FEMA LE) sodium 140.0 mmol/ L 136.0- 145.0 Not Available [facility] [address] [facility] 1, [place], [address], 05/02/2024 09:21:37 05/02/2005/02/2024 CMP (FEMA LE) potassium 4.3 mmol/ L 3.5-5. 1 Not Available [facility] [address] [facility], [place], [address], 05/02/2024 09:21:37 05/02/2005/02/2024 CMP (FEMA LE) chloride 104.0 mmol/ L 98.0-1 10.0 normal Not Available [facility] [address] [facility], [place], [address], 05/02/2024 09:21:37 05/02/2005/02/2024 CMP (FEMA LE) C02 28.0 mmol/ L 22.0-3 1.0 Not Available [facility] [address] [facility], [place], [address], 05/02/2024 09:21:37 05/02/2005/02/2024 CMP (FEMA LE) anion gap 8.0 calc Not Available [facility] [address] [facility] 1, [place], [address], 05/02/2024 09:21:37 05/02/2005/02/2024 CMP (FEMA LE) osmolality 291.2 calc Not Available [facility] [address] [facility], [place], [address], 05/02/2024 09:21:37 05/02/2005/02/2024 LIPID PROFI LE (FEMA LE) cholesterol 233.0 mg/dL 0.0-20 0.0 high Not Available [facility] [address] [address], [place], [address], 05/02/2024 09:21:39 05/02/2005/02/2024 LIPID PROFI LE (FEMA LE) trig 79.0 mg/dL 0.0-15 0.0 Not Available [facility] [address] [address], [place], [address], 05/02/2024 09:21:39 05/02/2005/02/2024 LIPID PROFI LE (FEMA LE) HDL - direct 50.0 mg/dL >40.0 Not Available [facility] [address] [address], [place], [address], 05/02/2024 09:21:39 05/02/2005/02/2024 LIPID PROFI LE (FEMA LE) VLDL - direct 15.8 mg/dL Not Available [facility] [address] [address], [place], [address], 05/02/2024 09:21:39 05/02/2005/02/2024 LIPID PROFI LE (FEMA LE) LDL - direct 167.2 mg/dL 0.0-13 0.0 high Not Available [facility] [address] [address], [place], [address], 05/02/2024 09:21:39 05/02/2005/02/2024 HbA1c (hemo globi n A1c), blood HbA1c 5.2 Not Available [facility] ([facility]) [address] [place], [address], 05/02/2024 08:13:05 07/17/19 07/17/2024 MAMMO , scree ethan, digit al, bilat eral No observ ation record ed. [address] [place], [address], 08/01/2024 08:40:12 Result Notes None recorded. Problems Name Problem SNOMED Code Status Onset Date Resolution Date Notes Provider Name and Address Organization Details Recorded Time Screening for malignant neoplasm of colon Completed 202209/30/[address] [facility], Sh[facility]gyLAnishCAnish 5 23:32:54 Adult attention deficit hyperactivi ty disorder 905008838 Active [address] 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, L.LAnishCAnish 4 08:21:01 Problem Notes None recorded. Procedures Surgical History Date Name Laterality Status Provider Name and Address Organization Details Recorded Time 06/01/20 colonoscopy completed [address] Le [facility], LAnishLAnishCAnish 09/30/2024 23:34:30 section completed [facility] 11/07/2023 08:17:57 grafting to skin completed [facility] L[facility]L.CAnish 11/07/2023 08:18:31 cholecystectomy completed [facility] L[facility]CAnish 09/30/2024 23:33:39 Imaging Results None recorded. Procedure Notes None recorded. Medical Equipment None Reported. Allergies No known drug allergies Medications Name Sig Start Date Stop Date Status Note LastModified by Organization Details LastModified Time meloxicam 7.5 mg tablet TAKE 1 TABLET BY MOUTH EVERY DAY FOR 14 DAYS 11/06 completed Not Available Not Available Not Available methocarbam ol 750 mg tablet TAKE 1 TABLET BY MOUTH EVERY 6 HOURS NEEDED FOR SPASMS 04/24 completed Not Available Not Available Not Available nystatin-tr iamcinolone 100,000 unit/g-0.1 % topical cream APPLY TOPICALLY TO THE AFFECTED AREA TWICE DAILY active Not Available Not Available No t Available naproxen 500 mg tablet TAKE 1 TABLET BY MOUTH TWICE DAILY NEEDED PAIN 04/24 completed Not Available Not Available Not Available methylpheni date ER 36 mg tablet,exte nded release 24 hr Take 1 tablet every day by oral route for 30 days. 2024 active Not Available Not Available Not Avai lable multivitami n active Not Available Not Available Not Available Vitals Date Recorded Body height Body mass index (BMI) Body weight Body temperature Heart rate Oxygen saturation Oxygen saturation in Arterial blood by Pulse oximetry Systolic And Diastolic Provider Name and Address Organization Details Last Updated DateTime 5 160.02 cm 32.9 kg/m2 39043.1 8 g 97.3 [degF] 82 /min 98 % 98 % 122/76 mm[Hg] [facility] 5 08:15:10 Date Recorded Body height Body mass index (BMI) Body weight Respiratory rate Body temperature Heart rate Oxygen saturation Oxygen saturation in Arterial blood by Pulse oximetry Systolic And Diastolic Provider Name and Address Organization Details Last Updated DateTime 5 160.02 cm 32.6 kg/m2 71771 g 18 /min 96.9 [degF] 86 /min 96 % 96 % 124/80 mm[Hg] EMMA PHAN [facility] L.L.CAnish 5 08:10:44 Date Recorded Body height Body mass index (BMI) Body weight Body temperature Heart rate Oxygen saturation Oxygen saturation in Arterial blood by Pulse oximetry Systolic And Diastolic Provider Name and Address Organization Details Last Updated DateTime 5 160.02 cm 34.7 kg/m2 74823.1 g 96.9 [degF] 72 /min 96 % 96 % 122/74 mm[Hg] [facility] 5 12:36:44 Date Recorded Body height Body mass index (BMI) Body weight Body temperature Heart rate Oxygen saturation Oxygen saturation in Arterial blood by Pulse oximetry Systolic And Diastolic Provider Name and Address Organization Details Last Updated DateTime 4 160.02 cm 31.9 kg/m2 81409.6 3 g 97.4 [degF] 76 /min 98 % 98 % 124/72 mm[Hg] Shira Le [facility] 13:08:13 Social History Question Answer Notes LastModified by [email or web address] Details LastModified Time Tobacco Smoking Status Never Smoker Shira Le null, [facility] 04/24/2023 08:32:18 Do You Or Have You Ever Used Marijuana? Never Used Information not available 04/28/2025 What Was The Date Of Your Most Recent Tobacco Screening? 04/28/2025 Information not available 04/28/2025 Sex: Unknown Functional Status Question Answer Note LastModified by [email or web address] Details LastModified Time How many times per week do you consume alcohol? Less than 1 time per week Information not available 09/30/2024 Do you use any illicit or recreational drugs? No Information not available 04/24/2023 Do you or have you ever used any other forms of tobacco or nicotine? No [email or web address] Information not available 11/07/2023 What is your level of alcohol consumption? Occasional Information not available 04/24/2023 Mental Status None recorded. Family History Relationship Description Onset Age of this Age Resolved Age Notes LastModified by Organization Details LastModified Time Mother Myocardial infarction 52 [email or web address] Not available 01/2024 08:14:50 Mother Coronary atherosclero sis [email or web address] Not available 11/06 08:16:09 Maternal Uncle Cerebrovascu lar accident [email or web address] Not available 08:16:32 Maternal Uncle Malignant melanoma [email or web address] Not available 11/06 08:16:59 Maternal Uncle Diabetes mellitus [email or web address] Not available 11/06 08:18:59 Maternal Grandmother Diabetes mellitus [email or web address] Not available 11/06 08:18:49 Medical History Condition Response ADD/ADHD Y Other Gynecological HistoryNo gynecological history recorded. Obstetrics History GPAL:G 0 P 0 0 0 0 Immunizations Vaccine Type Date Status Note Provider Nam e and Address Organization Details Recorded Time MMR 07/01/[address] [facility], ShaggyLAnishCAnish 05/09/2023 08:16:44 COVID-19, mRNA, LNP-S, PF, 30 mcg/0.3 mL dose 04/26/[address] [facility], [facility]gyLAnishCAnish 05/09/2023 08:16:45 influenza, unspecified formulation 06/30/[address] [facility], [facility]aggyLAnishCAnish 05/09/2023 08:16:45 Tdap 06/30/[address] [facility], ShaggyL.CAnish 05/09/2023 08:16:45 Hep B, adult 06/07/[address] [facility], LAnishL.CAnish 05/09/2023 08:16:45 Hep A-Hep B 07/21/[address] [facility], LAnishLAnishCAnish 05/09/2023 08:16:45 Hep A-Hep B 07/01/[address] [facility], LAnishL.CAnish 05/09/2023 08:16:45 Past Encounters Encounter ID Performer Location Encounter Start Date Encounter Closed Date Diagnosis/Indication Diagnosis SNOMED-CT Code Diagnosis ICD10 Code Diagnosis IMO Codes Diagnosis Note [id number] Britt Rice MD [facility] ([facility]) [address] [place] [phone] 04/24/2023 08:18:05 04/24/2023 16:49:31 Screening for malignant neoplasm of colon 825673374 Z12.11 Screening mammography 24 197770 Z12.31 General ex amination of patient 432918547 Z00.129 Screening for malignant neoplasm of cervix 091529078 Z12.4 had some sort of questiona ble results in 2019. a colpo was done. that was also questionab le then was sent to gynecology at [facility]. they just looked and did some other testing. [id number] Migue Velasco DO [facility] ([facility]) [address] [place] [phone] 05/03/2023 14:44:34 05/03/2023 16:42:18 Screening for malignant neoplasm of colon 984449948 Z12.11 I have reviewed and discussed colon cancer screening options, including colonoscop y. Discussed risks vs benefits including risk of infection and bleeding, perforatio n, possible need for surgery, reaction to medication s, and sever injury or . We discussed pt requiring sedation and possible general anesthesia . Pt agrees to proceed with Colonoscop y at [facility]. Preliminar y procedure date will be 06.01.23 [id number] Britt Rice MD [facility] ([facility]) [address] [place] [phone] 05/09/2023 08:09:22 05/09/2023 17:59:01 Hyperglycemia 60825051 R73.9 we discussed dash diet principles and graduated exercise program at length to help lower calorie balance and promote weight loss to lower risk of onset of DM. we discussed the lab findings at length definition of pre dm and risk of dm. i recommende d a structured program light weight watchers. we discussed in y experience running a weight loss program having access to their data the biggest predictors of success were those who kept records. she already has a weight watchers membership and is going to double down on using that to its fullest potential. we set goals today with her input that she is comfortabl e with today. Hypertriglyceridemia 302 812495 E78.1 Screening for malignant neoplasm of cervix 113503624 Z12.4 had some sort of questiona ble results in 2020. a colpo was done. that was also questionab le then was sent to gynecology at [facility]. they just looked and did some other testing. this above is clarified by extensive history review from gynecology and clarified with the patient. she is informed and acknowledg es understand ing she is due for her cervical cancer screening or pap smear at this time and is aware of the risks of not doing so, the potential benefits and risks of having a pap smear as acknowledg ed by the pt after our discussion . she also acknowledg es she has no further questions at this time and all questions are answered to her acknowledg ed satisfacti on. Screening mammography 24 911734 Z12.31 mammogram reviewed and results d/w pt. all questions were answered to her acknowledg ed satisfacti on. Adult atte ntion deficit hyperactivity disorder 319636046 F90.9 releases signed will call to have them sent please. [id number] BALTAZAR FELDMAN [facility] ([facility]) [address] [place] [address] 5 09/26/2023 08:36:57 09/26/2023 12:02:11 Pain of right knee joint 8325804904 43999 M25.561 Delio test positive 29 1102447 R29.898 Reassured with negative x-ray. Will send x-ray for over read. Patient given script for hinge knee brace and crutches. Should wear knee brace and weight bear as tolerated. RICE treatment recommende d. Can take tylenol as needed for pain. Will start meloxicam today. Referral was sent to ortho today and MRI was ordered as ACL tear is suspected. Will follow up with ortho. No running, jumping, bending, squatting, or climbing stairs/lad ders until cleared by ortho. Patient verbalizes understand ing. Anterior d rawer test positive 254302228 R29.613 [id number] Britt Rice MD [facility] ([facility]) [address] [place] [phone] 10/31/2023 08:05:42 11/01/2023 11:05:37 Adult attention deficit hyperactivity disorder 531968901 F90.9 releases signed will call to have them sent please. Diabetes m ellitus screening 877087501 Z13.1 [id number] Britt Rice MD [facility] ([facility]) [address] [place] [address] 5 11/07/2023 08:03:44 11/07/2023 08:51:38 Adult attention deficit hyperactivity disorder 585972519 F90.9 Pain of ri ght knee joint 5485590641 14924 M25.561 Staci-Sb los syndrome 066321257 Q79.60 Hyperglycemia 19611633 R 73.9 we discussed dash diet principles and graduated exercise program at length to help lower calorie balance and promote weight loss to lower risk of onset of DM. we discussed what insulin insensitiv ity is and how to cure it. we underscore d her improvemen ts and how the weight loss has impacted her health. i encouraged and helped correct continued changes to help her reach her goas. Tubular ad enomatous polyp of colon 476780876 D12.6 Screening for malignant neoplasm of cervix 029374040 Z12.4 had some sort of questiona ble results in 2020. a colpo was done. that was also questionab le then was sent to gynecology at [facility]. they just looked and did some other testing. this above is clarified by extensive history review from gynecology and clarified with the patient. she is informed and acknowledg es understand ing she is due for her cervical cancer screening or pap smear at this time and is aware of the risks of not doing so, the potential benefits and risks of having a pap smear as acknowledg ed by the pt after our discussion . she also acknowledg es she has no further questions at this time and all questions are answered to her acknowledg ed satisfacti on. i revisited this today. they called to schedule an apt but she missed the appointmen t. she understand s the above and wishes to reschedule . i advised she call and i will resend a referral as well but she will take initiative and make sre she gets in with her gynecologi st. [id number] Britt Rice MD [facility] ([facility]) [address] [place] [id number] 11/16/2023 08:03:09 11/16/2023 08:50:01 Adult attention deficit hyperactivity disorder 031620997 F90.9 [id number] Britt Rice MD [facility] ([facility]) [address] [place] [phone] 5 05/02/2024 08:04:06 05/02/2024 21:41:19 Adult attention deficit hyperactivity disorder 863188330 F90.9 Blood gluc ose outside reference range 367433106 R73.09 [id number] Britt Rice MD [facility] ([facility]) [address] [place] [id number] 07/02/2024 12:59:01 07/02/2024 14:51:01 Adult attention deficit hyperactivity disorder 383363854 F90.9 Screening mammography 24 266919 Z12.31 [id number] Britt Rice MD [facility] [facility]) [address] [place] [phone] 5 09/30/2024 08:07:03 10/08/2024 16:40:21 Adult attention deficit hyperactivity disorder 824515209 F90.9 will continue curernt care overall doing well future labs ordered for next visit cbc, cmp lipid, prior to visit for anual exam. [id number] Britt Rice MD [facility] ([facility]) [address] [place] [address] [phone] 5 12/31/2024 08:03:47 12/31/2024 11:12:49 Adult attention deficit hyperactivity disorder 179853608 F90.9 [id number] Britt Rice MD [facility] ([facility]) [address] [place] [address] [phone] 04/28/2025 12:28:18 04/28/2025 12:53:43 Physical examination 2730730 Z00.00 [id number] future labs ordered. she has not seen her health and wellness director this year. she will schedule with his office. Adult atte ntion deficit hyperactivity disorder 092493234 F90.9 696096 Tinnitus of left ear 353 [id number] 106 H93.12 536118 Health Concerns Section Related Observation LastModified by Organization Detai ls LastModified Time None Recorded Concern Status LastModified by Organization Details LastModified Time None Recorded Advance Directives Directive None Recorded Payers Insurance Date Sequence Insurance Name Policy Number Policy Mao Covered Member ID Mao Member ID Guarantor Name 04/25/2025 1 [place] [id number] Jaky Singleton [id number] Jaky Singleton Notes Date Note Type Note Provider Name and Address Organization Details Recorded Time 07/02/2024 text/html Musculoskeletal PainReported by PatientHPIFor location, patient reportsright knee. For severity, patient reportsimproving. For duration, patient reportspresent for 6-12 months. For timing, patient reportssudden. For alleviating factors, patient reportsrest. For aggravating factors, patient reportsmovement/positi oning(stooping, bending the knees). For prior tests/treatments, patient reportsprevious mri.adhd she is doing much better and mostly with treatment she is functioning much better she is completing tasks and not as nearly easily distracted. her appetite is ok. she has no perceived ill effects of her adhd medicaton.ROS as noted in the HPI hyperglycemia: fasting glucose 97, A1C 5.2she reports her knee is doing really really well. so well that she was able to walk through the entire [facility]. Britt Rice MD [address] [place] [address], [phone], [facility] 07/02/2024 13:42:13 09/30/2024 text/html Musculoskeletal PainReported by PatientHPIFor location, patient reportsright knee. For severity, patient reportsimproving. For duration, patient reportspresent for 6-12 months. For timing, patient reportssudden. For alleviating factors, patient reportsrest. For aggravating factors, patient reportsmovement/positi oning(stooping, bending the knees). For prior tests/treatments, patient reportsprevious mri.adhd she is doing much better and mostly with treatment she is functioning much better she is completing tasks and not as nearly easily distracted.her appetite is good. she has no perceived ill effects of her adhd medicaton.ROS as noted in the HPI Britt Rice MD [address] [place] [address], [phone], [facility] 10/08/2024 12:40:48 12/31/2024 text/html ROS as noted in the [employer] ADHD check Patient states that medication is working okay. She does not take it every day. She feels like it does help her focus but she's still feeling very anxious. She's unsure if it's the medication or if her job is causing her some anxiety. we discussed that the medication is not at all intended to treat generalized anxiety disorder. she understands that. being able to focus does help many people feel less anxious and she says that is the case. she has a reasonably good appetite. Britt Rice MD [address] [place], [phone], [facility]. 12/31/2024 08:23:09 04/28/2025 text/html Annual WellnessReported by PatientSocial/Behavior al HistoryFor diet and nutrition, patient reportshealthy diet(2-3 meals per day). For physical activity, patient reportsexercises on a regular basis (daily). For additional lifestyle factors, patient reportsno tobacco useanddrinks alcohol (mild-moderate).Mental Status:For depression risk, patient reportsno history of depression.Functional AbilityFor vision, patient reportsworse with distance (wears glasses). For hearing, patient reportsno loss of hearing.ROS as noted in the HPI ADHD check Patient states that she ran out of her medication about 1 month ago. It was working well for her before she ran out. She states her appetite has been elevated lately. She feels like it does help her focus but she's still feeling very anxious at times. she just wasn't able to come to her scheduled apt but did not reschedule. c/o a whirring sound worst at night better with a white noise machine. no noticeable decreased hearing she is aware of.present for a few years. Britt Rice MD [address] [place], [phone], [facility]. 04/28/2025 12:51:21 OBGyn Episode No OBEpisode recorded.
--- OUTSIDE RECORDS SUMMARY | 2025-04-29 21:07 | XMS_ITS | Continuity of Care Document ---
Author Organization [facility], LAnishLApoorva, [facility] ([facility]) Address [address] [place] [address] Care Team Providers Care Carpenter Supervisor Name Role Phone NETO RICE Primary Care Provider Unavailabl e Assessment No assessment recorded. Plan of Treatment Reminders Order Date Submit Date Provider Last Modified By Organization Details Last Modified Time Details Appointments RECHECK 15 2025 08:00A M Neto Rice MD Not available Not available Not available Lab None recorded. Referral audiologi st referral 2024 025 [facility] [employer] [facility], [address] , [place], [address], 04/28/2025 16:36:18 Procedures None recorded. Surgeries None recorded. Imaging None recorded. Medication Orders methylphe nidate ER 36 mg tablet,ex tended release 24 hr 2024 025 MELISSA [id number], [address], [place], [place], [phone], 04/28/2025 12:49:37 Patient TargetsNo targets recorded. Patient InstructionsNo instructions recorded. 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 Procedures Surgical History Date Name Laterality Status Provider Name and Address Organization Details Recorded Time 06/01/[address] [facility] 23:34:30 section completed [facility] MARYVALE ANDERSON [facility]/07[facility]2023 08:17:57 [facility] skin [facility]23 08:18:[address] [facility]/30/2024 23:33:39 Imaging Results None recorded. Procedure [...] and Address Organization Details Last Updated DateTime 160.02 cm 34.7 kg/m2 07959.1 g 96.9 [degF] 72 /min 96 % 96 % 122/74 mm[Hg] Shira Le [facility] 12:36:44 Social History Question Answer Notes LastModified by Muzy Details LastModified Time Tobacco Smoking Status Never Smoker Shira Bradleyobloch [facility] 04/24/2023 08:32:18 Do You Or Have You Ever Used Marijuana? Never Used Information not available 04/28/2025 What Was The Date Of Your Most Recent Tobacco Screening? 04/28/2025 Information not available 04/28/2025 Sex: Unknown Functional Status Question Answer Note LastModified by Muzy Details LastModified Time How many times per week do you consume alcohol? Less than 1 time per week Information not available 09/30/2024 Do you use any illicit or recreational drugs? No Information not available 04/24/2023 Do you or have you ever used any other forms of tobacco or nicotine? No [email or web address] Information not available 11/07/2023 What is your level of alcohol consumption? Occasional Information not available 04/24/2023 Mental Status None recorded. Family History Relationship Description Onset Age of this Age Resolved Age Notes LastModified by Organization Details LastModified Time Mother Myocardial infarction 52 [email or web address] Not available 01/2024 08:14:50 Mother Coronary atherosclero sis [email or web address] Not available 11/06 08:16:09 Maternal Uncle Cerebrovascu lar accident [email or web address] Not available 08:16:32 Maternal Uncle Malignant melanoma [email or web address] Not available 11/06 08:16:59 Maternal Uncle Diabetes mellitus [email or web address] Not available 11/06 08:18:59 Maternal Grandmother Diabetes mellitus [email or web address] Not available 11/06 08:18:49 Medical History Condition Response Other ADD/ADHD Y Gynecological HistoryNo gynecological history recorded. Obstetrics History GPAL:G 0 P 0 0 0 0 Immunizations Vaccine Type Date Status Note Provider Nam e and Address Organization Details Recorded Time MMR 07/01/2016 completed Shira mancuso [facility] 05/09/2023 08:16:44 COVID-19, mRNA, LNP-S, PF, 30 mcg/0.3 mL dose 04/26/2021 completed Shira mancuso [facility] 05/09/2023 08:16:45 influenza, unspecified formulation 06/30/2016 completed Shira mancuso [facility]ish 05/09/2023 08:16:45 Tdap 06/30/2016 completed Shiraruthie mancuso [facility] 05/09/2023 08:16:45 Hep B, adult 06/07/2018 completed Shira mancuso [facility] 05/09/2023 08:16:45 Hep A-Hep B 07/21/2017 completed Shira mancuso [facility] 05/09/2023 08:16:45 Hep A-Hep B 07/01/2016 completed Shiraruthie mancuso [facility] 05/09/2023 08:16:45 Past Encounters Encounter ID Performer Location Encounter Start Date Encounter Closed Date Diagnosis/Indication Diagnosis SNOMED-CT Code Diagnosis ICD10 Code Diagnosis IMO Codes Diagnosis Note [id number] Neto Rice MD [facility] ([facility]) [address] [place] [phone] 04/28/2025 12:28:18 04/28/2025 12:53:43 Physical examination 3643431 Z00.00 [id number] future labs ordered. she has not seen her onsite health coach this year. she will schedule with his office. Adult atte ntion deficit hyperactivity disorder 091086707 F90.9 117961 Tinnitus of left ear 460 2907376 106 H93.12 768131 Health Concerns Section Related Observation LastModified by Organization Detai ls LastModified Time None Recorded Concern Status LastModified by Organization Details LastModified Time None Recorded Payers Encounter Date Sequence Insurance Name Policy Number Policy Mao Covered Member ID Mao Member ID Guarantor Name 04/28/2025 1 [place] [id number] Jaky Singleton [id number] Jaky Baer Areli Notes Date Note Type Note Provider Name and Address Organization Details Recorded Time 04/28/2025 text/html Annual WellnessReported by PatientSocial/Behavior al [...] is aware of.present for a few years. Neto Rice MD [address] [place] [address], [phone], [facility], LAnishLAnishCAnish 04/28/2025 12:51:21 OBGyn Episode No OBEpisode recorded.
--- OUTSIDE RECORDS SUMMARY | 2025-04-29 21:07 | XMS_ITS | Clinical Summary ---
Author Organization Nilda Piña [facility] Address [address] [facility] [address] [place] [address] Phone Care Team Providers Care Rn Documentation Name Role Phone Unavailable Primary Care Provider Unavailabl e Allergies No known active allergies Medications azithromycin (ZITHROMAX Z-CONCHA) 250 mg Oral tablet Take 2 tabs the first day and 1 tab days 2-5 1 Package None 05/08/2012 Active diphenhydrAMINE (BENADRYL) 12.5 mg/5 mL Oral Elix Take 12.5 mg by mouth every 6 hours as needed. Active CALAMINE/PHENOL LIQUID (CALAMINE PHENOLATED) Topical Lotn Apply to affected area. Active predniSONE (DELTASONE) 20 mg Oral tablet Take 1 Tab by mouth 2 times daily. 8 Tab None 12/15/2012 Active qbbpymya-zj-cko -fe-fA ( VITAMIN) Oral Tab Take 1 Tab by mouth daily. Active DIMENHYDRINATE (DRAMAMINE ORAL) Take 2 Tabs by mouth daily. 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 Gender Identity Not on file Sexual Orientation Not on file Occupation Industry Job Start Date Job End Date Not on file Not on file Not on file Not on file Last Filed Vital Signs Vital Sign Reading Time Taken Comments Blood Pressure 103/54 01/14/2013 2:30 PM CDT Pulse 65 01/14/2013 2:30 PM CDT Temperature 36.9 C (98.4 F) 01/14/2013 2:30 PM CDT Respiratory Rate 18 01/14/2013 2:30 PM CDT Oxygen Saturation 99% 01/14/2013 2:30 PM CDT Inhaled Oxygen Concentration - - Weight 72.2 kg (159 lb 3.2 oz) 01/14/2013 12:15 PM CDT Height 160 cm (5' 3 ) 01/14/2013 12:15 PM CDT Body Mass Index 28.2 01/14/2013 12:15 PM CDT Plan of Treatment Health Maintenance Due Date Last Done Comments DTAP/TDAP/TD VACCINES (1 - Tdap) 1997 HEPATITIS B VACCINES (1 of 3 - 19+ 3-dose series) 08/1996 HPV/Cotest (21-29) 1999 CERVICAL CANCER SCREENING 2008 HPV/Cotest (30-65) 2008 PAP SMEAR 2008 BREAST CANCER SCREENING 2018 COLORECTAL SCREENING 2023 Colorectal Cancer Screening 2023 FIT-DNA Q 3 years 2023 FIT/FOBT Q 1 year 2023 Flex Sig/CT Colonography Q 5 years 2023 INFLUENZA VACCINE (#1) 2025 RSV VACCINE (60+ or ) (1 - 1-dose 75+ series) 2053 Insurance MEDICAID PENDING [place]ICAID [place]
[2025-04-29 21:08] VITALS: BP 121/87; PULSE 88; RESP 16; TEMP 36.7; O2SAT 97; BMI 33.8
--- NOTE | 2025-04-29 21:20 | XRR_ITS ---
PROCEDURE INFORMATION: Exam: XR Left Hand Exam date and time: 04/29/2025 9:25 PM Age: 45 years old Clinical indication: Injury or trauma; Other: Dog pulled cable from hand; Swelling (edema); Left; Additional info: Injury/pain TECHNIQUE: Imaging protocol: Radiologic exam of the left hand. Views: 3 or more views. COMPARISON: No relevant prior studies available. FINDINGS: Bones/joints: Oblique lucency through the 4th digit proximal phalanx without clear cortical defect. Correlate with point tenderness/physical exam to exclude nondisplaced fracture. Findings may be artifactual in nature. 5 mm osseous fragment involving a distal phalanx, either the 4th or 2nd digit (superimposed on the lateral image and poorly characterized on AP/oblique images.). Osseous alignment is normal. Mild joint space narrowing is noted at several interphalangeal joints. Soft tissues: Normal. XR/XR hand LT min 3V* [id number] IMPRESSION: 1. Indeterminate displaced osseous fragment involving a distal phalanx, only characterized on the lateral image. This is suspected to involve the 4th digit distal phalanx and may represent an acutely displaced tuft or osteophyte fracture. Correlate with physical exam/point tenderness. Correlate with findings in the 1st digit as well given superimposition. Consider repeat lateral and oblique images for better characterization given patient positioning. 2. Oblique lucency through the 4th digit proximal phalanx without clear cortical defect. Correlate with point tenderness/physical exam to exclude nondisplaced fracture. Findings may be artifactual in nature.
[2025-04-29 21:42] VITALS: RESP 16; O2SAT 98
[2025-04-29] MEDS: oxyCODONE 5 mg IR Tab/Cap PO (21:42)
[2025-04-29 21:43] VITALS: BP 114/76; PULSE 76; O2SAT 97
[2025-04-29 23:20] VITALS: BP 112/94; PULSE 81; O2SAT 96
--- NOTE | 2025-05-02 04:27 | W.ED.EXTPRO ---
HPI - Extremity Problem General: Chief complaint: Extremity Injury, Upper Stated complaint: LT hand pain Time Seen by Provider: 04/29/25 21:28 History of Present Illness: Patient is a 45-year-old female with a history of Staci-Danlos syndrome (hypermobility type) who presents with acute right hand pain and swelling after sustaining a rope burn injury while holding the leash for her 100-pound dog, which suddenly darted and caused the leash to slip through her hands. She reports burning, throbbing pain, inability to fully close her hand, and visible blistering and swelling involving most of the hand. She denies any prior significant orthopedic issues to the hand except for a childhood finger fracture. She applied lidocaine cream with no relief and has not taken any oral medications. No other areas were injured. Related Data Home Medications ?Medication ?Instructions ?Recorded ?Confirmed multivitamin 1 tab PO DAILY 11/08/20 12/18/23 methylphenidate HCl 36 mg 36 mg PO DAILY 11/21/23 12/18/23 tablet,extended release 24 hr (Concerta) Previous Rx's ?Medication ?Instructions ?Recorded ondansetron 4 mg disintegrating 4 mg PO Q8H PRN nausea and 03/27/22 tablet vomiting #15 tabs nystatin-triamcinolone 100,000 1 applic topical BID #60 grams 11/21/23 unit/g-0.1 % topical cream oxycodone 5 mg tablet 5 mg PO TID PRN pain #10 tabs 04/29/25 Allergies Allergy/AdvReac Type Severity Reaction Status Date / Time No Known Allergies Allergy Verified 04/29/25 21:14 Review of Systems General: Reports: 10 or more systems reviewed and unremarkable except in HPI and below Musc: Reports: extremity pain and joint swelling PFS ED PFSH: Medical History (Updated 04/29/25 @ 23:03 by Christian Erazo DO) Bursitis and tendinitis of shoulder region Staci-Danlos syndrome Surgical History Hx of dilation and curettage History of tubal ligation (~2013) at time of Previous section Previous section (~2010) History of facial surgery Plastic surgery with skin graft as a child for a traumatic injury Status post cholecystectomy (~2013) Previous section (~2009) Family History Mother Hypertension Hyperlipidemia Thyroid disease Heart disease Grandmother Hypertension maternal Hyperlipidemia Maternal and paternal Colon cancer Heart disease Family/Other Stroke Maternal uncle Uterine cancer Maternal great aunt Denies family history of Ovarian cancer Diabetes Breast cancer Social History Smoking and tobacco/nicotine status: never used tobacco/nicotine Physical Exam Narrative: EXAM NARRATIVE: Patient well-appearing, vital stable on arrival, no acute distress, second-degree burn with early blistering to palmar surface of affected extremity also to proximal middle 3 digits, good coloration, no eschar, nothing circumferential, motor and sensation intact of all 5 digits, wrist and elbow. Moderate diffuse tenderness. No other injuries seen. Course Vital Signs: Vital signs: Vital Signs Temperature 98.0 F 04/29/25 21:08 Pulse Rate 81 04/29/25 23:20 Respiratory Rate 16 04/29/25 21:42 Blood Pressure 112/94 04/29/25 23:20 Pulse Oximetry 96 04/29/25 23:20 Oxygen Delivery Me thod Room Air 04/29/25 21:43 MDM - Extremity (Nontraumatic) Medical Decision Making -ddx: First for second-degree burn, carpal fracture, dislocation, soft tissue injury - Patient with second-degree friction burn, has blistering on exam, neurovasc intact, 2+ pulse, pain moderate has not taken anything at home, improved with oxycodone, will treat as burn, covered in Xeroform dressing and then given Vaseline gauze and instructed to keep clean for the next week, advised that goal is to prevent secondary infection after inevitable rupture of the blisters, discharged with a short course of oxy and Zofran for continued pain relief, advised to follow-up with the orthopedic clinic for reevaluation of her hand after it resolves. Of note, x-ray showed no new fracture, dislocation, but she sustained an injury as a child that seemingly correlated with the findings on that. Discharged in stable condition with strict return precautions given. Lab Data Radiology Impressions Hand X-Ray 04/29/25 21:20 IMPRESSION: 1. Indeterminate displaced osseous fragment involving a distal phalanx, only characterized on the lateral image. This is suspected to involve the 4th digit distal phalanx and may represent an acutely displaced tuft or osteophyte fracture. Correlate with physical exam/point tenderness. Correlate with findings in the 1st digit as well given superimposition. Consider repeat lateral and oblique images for better characterization given patient positioning. 2. Oblique lucency through the 4th digit proximal phalanx without clear cortical defect. Correlate with point tenderness/physical exam to exclude nondisplaced fracture. Findings may be artifactual in nature. All radiology interpretation(s) finalized by discharge Discharge Plan Discharge Patient Disposition: Home Clinical Impression: Burn of hand Qualifiers: Burn of hand location: palm Laterality: left Burn degree: partial thickness (2nd degree) Condition: Stable Prescriptions: New oxycodone 5 mg tablet 5 mg PO TID MDD 15 mg PRN (Reason: pain) Qty: 10 0RF Rx Instructions: For breakthrough hand pain after Tylenol or Motrin No Action methylphenidate HCl [Concerta] 36 mg tablet extended release 24hr 36 mg PO DAILY nystatin-triamcinolone 100,000-0.1 unit/g-% cream 1 applic topical BID Qty: 60 6RF multivitamin Tablet 1 tab PO DAILY ondansetron 4 mg tablet,disintegrating 4 mg PO Q8H PRN (Reason: nausea and vomiting) Qty: 15 0RF Discharge Orders: Discharge ED (Routine); Ordered 04/29/25 Ordered By: Christian Erazo Referrals: Bruce Myers III, MD [Staff Physician, Orthopedics] - 7-10 days Referral Note: For follow-up evaluation after hand burn with previous orthopedic injuries to same fingers Clinical Impression: Burn of hand Neto Fitzgerald MD [Primary Care Provider, Family Practice] Discharge Diet: Usual diet Discharge Activity: Limit activity as instructed Patient Instructions: Second-Degree Burn (ED), Opioid Safety, Pain Management, Patient Portal & Suzanne Instructions Activity Restrictions/Additional Instructions: You were seen for your hand burn, you were evaluated with an x-ray which was negative for any new fracture today. You have second-degree chacko to the inside of your hand and fingers. These will likely rupture on their own in 2 breasts heal and prevent any secondary infection, keep the antibiotic gauze on for the next 24 hours or whenever feels off and then keep the area clean for the next week, apply the Vaseline gauzes after that. Avoid any strenuous or heavy activity to this hand during this time. For the pain, alternate ibuprofen 4 mg and Tylenol 650 mg every 4 hours as needed. For breakthrough pain, use oxycodone 5 mg every 8 hours as needed on top of this, do not drive or operate heavy machinery with this medication as it can be sedating. For follow-up evaluation of your hand in about a week's time, no orthopedic clinic appointment has been requested for you for reevaluation. Return to the ED with severe worsening of the pain or swelling, inability to feel or move your arm, fevers, any other emergent concerns. Stand Alone Forms: Work/School Release Print Language: Estonian Coding Level of Care Code ED Energy Derivatives Trader for Malcolm Campos
== END 2025-04-29 23:34 | disposition home or self-care (01) ==
PROVIDERS: Emergency Provider Student in an Organized Health Care Education/Training Program; PCP Family Medicine
DX: Z01.89 Encounter for other specified special examinations (principal); Z53.21 Procedure and treatment not carried out due to patient leaving prior to being seen by health care provider; S62.615A Displaced fracture of proximal phalanx of left ring finger, initial encounter for closed fracture; X58.XXXA Exposure to other specified factors, initial encounter
CPT/HCPCS: 73130; 99283; A6446; J9999